=== PATIENT | female | born 1960 | race Two or more races ===

== ENCOUNTER 2021-03-19 20:01 | Emergency (ER) | payer OTHER ==
[~2021-03-19] VITALS: Ht 165.1 cm; Wt 137.4 kg
[~2021-03-19 20:01] MED LIST: OXYC1TAB9 PO; SURFAK240 M1 PO
== END 2021-03-20 01:46 | disposition home or self-care (01) ==
LOC: ER 20:01
DX: R53.1 Weakness (principal); J32.0 Chronic maxillary sinusitis; Z03.818 Encounter for observation for suspected exposure to other biological agents ruled out